=== PATIENT | male | born 1965 | race Caucasian/White ===

== ENCOUNTER 2017-05-20 04:19 | Emergency (ER) | payer OTHER ==
[~2017-05-20] VITALS: Ht 175.3 cm; Wt 97.5 kg
[2017-05-20] MEDS ORDERED: TETRACAINE 0.5% OPHTH SOLN 4ML OU ONE (06:45)
--- NOTE | 2017-05-20 07:10 | REPUSA ---
CLINICAL HISTORY: Headaches. TECHNIQUE: Multiple axial brain CT scan sections were obtained from base to vertex without contrast a dministration. COMMENTS: The study shows normal configuration of sella turcica. There are no intra or extra-axial collections. There is no mass effect or midline shift. There is no evidence of hematoma formation. No hydrocephal us is present. No abnormal calcifications are noted. No significant abnormalities are seen either in the posterior fossa or supratentorial compartment. The sinuses and mastoid air cells are patent. IMPRESSION: No evidence of acute intracranial pathology. Thank you for your kind referral of this patient.
[2017-05-20 07:21] VITALS: BP 180/90
[2017-05-20] MEDS ORDERED: NAPR500T PO (07:39)
[2017-05-21] MEDS ORDERED: PRED10TA2 PO (14:25)
[2017-05-21] MEDS ORDERED: REGL10TA6 PO (19:58)
== END 2017-05-20 07:50 | disposition home or self-care (01) ==
LOC: M ED 04:19
DX: H57.11 Ocular pain, right eye (principal); R51 Headache; F17.210 Nicotine dependence, cigarettes, uncomplicated

== ENCOUNTER 2017-05-21 13:53 | Emergency (ER) | payer OTHER ==
[~2017-05-21] VITALS: Ht 175.3 cm; Wt 97.2 kg
[~2017-05-21 13:53] MED LIST: NAPR500T PO
[2017-05-21] MEDS ORDERED: PRED10TA2 PO (14:25)
[2017-05-21] MEDS ORDERED: NS 1,000 ML IV ONE (14:45)
[2017-05-21] MEDS ORDERED: diphenhydrAMINE INJ 50MG/ML VIAL (J1200) IV ONE (14:45)
[2017-05-21] MEDS ORDERED: METOCLOPRAMIDE INJ 10MG/2ML VIAL (J2765) IV ONE (14:45)
[2017-05-21 15:14] LABS: MEAN CORPUSCULAR HEMOGLOBIN 29.6 pg (27.0-33.0); MEAN CORPUSCULAR VOLUME 84.6 fl (80.0-96.0); PLATELET COUNT, AUTOMATED 275 10^3/uL (150-450); WHITE BLOOD COUNT 16.3 10^3/uL (4.0-10.0)
[2017-05-21 15:16] LABS: ADD MANUAL DIFFER YES; DIFF SLIDE NUMBER 276
[2017-05-21 15:30] LABS: INR 1.03
[2017-05-21 16:04] LABS: METHADONE URINE NEGATIVE (NEGATIVE)
[2017-05-21 16:04] LABS: ALBUMIN 4.4 GM/DL (3.2-5.2); ALBUMIN/GLOBULIN RATIO 1.57 (1.00-1.93); ALKALINE PHOSPHATASE 72 U/L (45-117); ALT/SGPT 27 U/L (12-78); ANION GAP 9 MEQ/L (8-16); AST/SGOT 11 U/L (15-37); BILIRUBIN,DIRECT 0.2 MG/DL (0.0-0.2); BILIRUBIN,TOTAL 0.5 MG/DL (0.2-1.0); BLOOD UREA NITROGEN 22 MG/DL (7-18); CALCIUM LEVEL 9.3 MG/DL (8.5-10.1); CARBON DIOXIDE LEVEL 26 MEQ/L (21-32); CHLORIDE LEVEL 104 MEQ/L (98-107); CREATININE FOR GFR 1.22 MG/DL (0.70-1.30); GLOMERULAR FILTRATION RATE > 60.0 (>56); GLUCOSE, FASTING 146 MG/DL (70-105); MAGNESIUM LEVEL 2.2 MG/DL (1.8-2.4); POTASSIUM SERUM 4.1 MEQ/L (3.5-5.1); SODIUM LEVEL 139 MEQ/L (136-145); TOTAL PROTEIN 7.2 GM/DL (6.4-8.2)
[2017-05-21 16:29] LABS: BANDS 1 % (< 11)
[2017-05-21 16:30] LABS: ANISOCYTOSIS 1+; MICROCYTOSIS 1+
[2017-05-21] MEDS ORDERED: LORazepam 2 MG/ML VIAL (J2060) IV STA (18:16)
--- NOTE | 2017-05-21 19:10 | REPUSA ---
MRI of the brain without contrast clinical history: headache. Vision changes. Comparison: 05/20/2017. Technique: [id number] MRA images of the brain were obtained without administration of contrast. 3 -D MIP images were also obtained. Findings: The vascular structures extending from the distal carotid and vertebrobasilar arterial syst ems, through the [place] of [place], demonstrate normal caliber and contour. There is no evidence of an eurysm, stenosis, or thrombosis. Impression: Unremarkable MRA examination of the brain.
[2017-05-21 19:14] LABS: DIFF SLIDE NUMBER 307
--- NOTE | 2017-05-21 19:20 | REPUSA ---
MRI of the brain. Clinical history: headache, vision changes. Comparison: CT, 05/20/2017. Technique: Multiecho multiplanar MRI images of the brain were obtained without administration of cont rast. Diffusion weighted images with ADC mapping was also obtained. Findings: The ventricles and sulci are symmetric bilaterally. The brain parenchyma demonstrates uniform and nor mal signal on all sequences. There is no midline shift, mass effect, or extra-axial fluid collection. The midline intracranial structures do not demonstrate any gross abnormalities. The cervical cranial junction is intact. The orbits are unremarkable. There is a mucus retention cyst in the left maxilla ry sinus. The other visualized paranasal sinuses and mastoid air cells are clear. The osseous structu res and superficial soft tissues are unremarkable. The vascular structures demonstrate appropriate fl ow voids. Impression: Normal MRI of the Brain.
[2017-05-21] MEDS ORDERED: REGL10TA6 PO (19:58)
[2017-05-21 20:13] VITALS: BP 110/53
== END 2017-05-21 20:20 | disposition home or self-care (01) ==
LOC: M ED 13:53
DX: G43.909 Migraine, unspecified, not intractable, without status migrainosus (principal)
CPT/HCPCS: 36415; 70544; 70551; 80048; 80076; 80307; 82550; 82553; 83735; 84443; 85025; 85610; 93041; 94760; 96361; 96374; 96375; 99285; G0480; J1200; J2060; J2765

== ENCOUNTER → 2017-12-23 | Outpatient (CLI) | payer OTHER | LOC: M PLARAD 07:51 | DX: M54.2 Cervicalgia (principal) ==

== ENCOUNTER 2018-01-07 09:30 | Outpatient (CLI) | payer OTHER ==
[2018-01-07] MEDS ORDERED: MIDAZOLAM INJ 2 MG/2 ML VIAL (J2250) As Ordered (10:49)
== END 2018-01-07 12:52 | disposition home or self-care (01) ==
LOC: M RAD 09:30
DX: M54.2 Cervicalgia (principal); M47.812 Spondylosis without myelopathy or radiculopathy, cervical region; M47.813 Spondylosis without myelopathy or radiculopathy, cervicothoracic region
CPT/HCPCS: J2250

== ENCOUNTER 2019-11-13 10:03 | Emergency (ER) | payer OTHER ==
[~2019-11-13] VITALS: Ht 175.3 cm; Wt 97.7 kg
[~2019-11-13 10:03] MED LIST changes: +NAPR-837 PO; -NAPR500T PO; +PRED10TA2 PO; +REGL10TA6 PO
[2019-11-13] MEDS ORDERED: LOSA25TA14 PO (10:15)
[2019-11-13] MEDS ORDERED: OSEL75CA2 PO (10:15)
[2019-11-13 11:28] LABS: HEMATOCRIT 41.7 % (42.0-52.0); HEMOGLOBIN 13.9 g/dl (13.5-17.5); MEAN CORPUSCULAR HGB CONC 33.3 g/dl (32.0-36.5); MEAN CORPUSCULAR VOLUME 87.1 fl (80.0-96.0); PLATELET COUNT, AUTOMATED 198 10^3/uL (150-450); RED BLOOD COUNT 4.79 10^6/uL (4.30-6.10); WHITE BLOOD COUNT 7.8 10^3/uL (4.0-10.0)
[2019-11-13 11:55] LABS: BLOOD UREA NITROGEN 12 MG/DL (7-18); CALCIUM LEVEL 8.5 MG/DL (8.5-10.1); CARBON DIOXIDE LEVEL 33 MEQ/L (21-32); CHLORIDE LEVEL 103 MEQ/L (98-107); CK-MB VALUE MASS < 1.0 NG/ML (<3.6); CPK CREATINE PHOSPHOKINASE 84 U/L (39-308); CREATININE FOR GFR 1.07 MG/DL (0.70-1.30); GLOMERULAR FILTRATION RATE > 60.0 (>56); GLUCOSE, FASTING 104 MG/DL (70-100); MB/CK RELATIVE INDEX 1.19 (< OR =4); POTASSIUM SERUM 4.8 MEQ/L (3.5-5.1); SODIUM LEVEL 138 MEQ/L (136-145); TROPONIN I < 0.02 NG/ML (< 0.10)
[2019-11-13 11:57] LABS: ATYPICAL LYMPH 4 % (0-5); LYMPHOCYTES 39 % (16-44); MONOCYTES 8 % (0-5); NEUTROPHILS 47 % (28-66); PLATELET ESTIMATE NORMAL (NORMAL)
--- NOTE | 2019-11-13 12:28 | REP ---
PORTABLE CHEST X-RAY: Single view. HISTORY: Cough for 5 days. Fever. Comparison chest x-ray October 13, 2014. FINDINGS: There is a pattern of increased parenchymal opacity along the lateral chest wall on the left. I cannot exclude early infiltrate. Right lung remains clear. Heart is not enlarged. No significant bony abnormality is seen. Pulmonary vasculature is not increased. IMPRESSION: Increased density along the left lateral chest may reflect early infiltrate. Otherwise no acute disease. Electronically Signed by Darren Snyder MD 11/13/2019 12:48 P
[2019-11-13] MEDS ORDERED: DOXY100T27 PO (13:51)
[2019-11-13 14:21] VITALS: BP 121/73
--- NOTE | 2019-11-13 18:43 | ECGEPIP ---
[facility] - ED Test Date: 2019-11-13 Pat Name: ABDIRIZAK HILLS Department: Room: - Gender: Male Garnett Fixer: RAKESH : 1965 Requested By: Shabnam Bear [facility] Order Number: [id number] Reading MD: Cindy Marquez Measurements Intervals [place] Rate: 91 P: 31 AL: 167 QRS: 16 QRSD: 92 T: 33 QT: 347 QTc: 429 Interpretive Statements SINUS RHYTHM INCREASED RATE 10/14/14 Electronically Signed on 11-13-2019 18:42:52 EDT by Cindy Marquez
== END 2019-11-13 14:33 | disposition home or self-care (01) ==
LOC: M ED 10:03
DX: J18.9 Pneumonia, unspecified organism (principal); I10 Essential (primary) hypertension; Z79.899 Other long term (current) drug therapy
CPT/HCPCS: 36415; 71045; 80048; 82550; 82553; 84484; 85025; 87486; 87581; 87633; 87798; 93005; 99284; U0002

== ENCOUNTER → 2020-09-06 | Outpatient (CLI) | payer SELFPAY ==
[~2020-09-06] MED LIST changes: +DOXY100T27 PO; +LOSA25TA14 PO; +OSEL75CA2 PO
== END ==
LOC: M LABSMTC 11:21
PROVIDERS: ATTEND Pediatrics
DX: Z20.828 Contact with and (suspected) exposure to other viral communicable diseases (principal)

== ENCOUNTER → 2021-01-27 | Outpatient (CLI) | payer OTHER ==
--- NOTE | 2021-01-27 12:28 | REP ---
INDICATION: RCT, RUPTURE OF RT SHOULDER. COMPARISON: 03/11/2006. TECHNIQUE: Coronal oblique T1, T2 fat sat, sagittal oblique T2 fat sat, axial T2 fat sat, gradient echo. FINDINGS: Rotator cuff: No evidence of tear. There is [id number] supraspinatus tendinopathy/tendinitis. Acromioclavicular joint: There is moderate hypertrophic change at the acromioclavicular joint. There is mild fluid in the joint. Acromion: Type 2, downward sloping. Biceps Tendon: In bicipital groove, no tenosynovitis. Hill Sach's deformity: None. Deltoid muscle: No abnormal signal. Biceps labral complex: There is tear at the biceps labral complex. Labrum: There is diffuse SLAP tear. There is a tear of the posterior labrum with an associated paralabral cyst, which extends along the posterior bony glenoid. There is an inferior labral tear with an associated paralabral cyst along the inferior glenoid. Cartilage: No defects. Bone marrow: There are few subcortical cystic structures of the humeral head. Joint fluid: There is not a significant joint effusion. IMPRESSION: [id number] supraspinatus tendinopathy/tendinitis, no rotator cuff tear. Moderate hypertrophic degenerative changes acromioclavicular joint with a type 2 downward sloping acromion. There is diffuse SLAP tear which also involves the biceps labral complex. There is a tear of the posterior labrum with associated paralabral cyst as well as a tear of the inferior labrum with an associated paralabral cyst. <Electronically signed by Alfredo Caal > 01/27/21 [id number]
== END ==
LOC: M RAD 09:55
PROVIDERS: ATTEND Nurse Practitioner Family
DX: M77.8 Other enthesopathies, not elsewhere classified (principal); M75.101 Unspecified rotator cuff tear or rupture of right shoulder, not specified as traumatic

== ENCOUNTER → 2021-06-26 | Outpatient (CLI) | payer OTHER ==
[2021-06-26 18:09] LABS: HEMATOCRIT 44.4 % (42.0-52.0); HEMOGLOBIN 14.8 g/dl (13.5-17.5); MEAN CORPUSCULAR HEMOGLOBIN 29.2 pg (27.0-33.0); MEAN CORPUSCULAR HGB CONC 33.3 g/dl (32.0-36.5); MEAN CORPUSCULAR VOLUME 87.7 fl (80.0-96.0); PLATELET COUNT, AUTOMATED 279 10^3/uL (150-450); RED BLOOD COUNT 5.06 10^6/uL (4.30-6.10); WHITE BLOOD COUNT 9.1 10^3/uL (4.0-10.0)
[2021-06-26 18:39] LABS: ALT/SGPT 52 U/L (12-78); BILIRUBIN,TOTAL 0.6 MG/DL (0.2-1.0); BLOOD UREA NITROGEN 16 MG/DL (7-18); C REACTIVE PROTEIN QUANTITATIV 0.54 MG/DL (0.00-0.30); CALCIUM LEVEL 9.1 MG/DL (8.5-10.1); CARBON DIOXIDE LEVEL 31 MEQ/L (21-32); CHLORIDE LEVEL 105 MEQ/L (98-107); CHOLESTEROL LEVEL 195 MG/DL (<200); CHOLESTEROL RISK RATIO 4.062 (<5); CREATININE FOR GFR 1.02 MG/DL (0.70-1.30); GLOMERULAR FILTRATION RATE > 60.0 (>56); GLUCOSE, FASTING 90 MG/DL (70-100); HDL CHOLESTEROL 48 MG/DL (>40); LDL CHOLESTEROL 80 MG/DL (<100); MAGNESIUM LEVEL 2.3 MG/DL (1.8-2.4); NON-HDL-C 147 MG/DL; NT-PRO BNP 48 PG/ML (<125); POTASSIUM SERUM 4.1 MEQ/L (3.5-5.1); SODIUM LEVEL 140 MEQ/L (136-145); TOTAL PROTEIN 7.2 GM/DL (6.4-8.2); TRIGLYCERIDES LEVEL 335 MG/DL (<150)
== END ==
LOC: M WUC 14:47
PROVIDERS: ATTEND Internal Medicine Cardiovascular Disease
DX: I11.0 Hypertensive heart disease with heart failure (principal); I50.9 Heart failure, unspecified; R94.31 Abnormal electrocardiogram [ECG] [EKG]; I47.2 Ventricular tachycardia; E78.2 Mixed hyperlipidemia

== ENCOUNTER → 2023-08-05 | Outpatient (CLI) | payer OTHER ==
[~2023-08-05] MED LIST changes: +LOSA25TA13 PO; -LOSA25TA14 PO
== END ==
LOC: M EKG 15:48
PROVIDERS: ATTEND Orthopaedic Surgery
DX: Z01.818 Encounter for other preprocedural examination (principal)

== ENCOUNTER → 2023-10-18 | Outpatient (CLI) | payer OTHER | LOC: M RAD 09:15 | PROVIDERS: ATTEND Orthopaedic Surgery | DX: R22.41 Localized swelling, mass and lump, right lower limb (principal) ==

== ENCOUNTER 2023-12-12 08:38 | Emergency (ER) | payer OTHER ==
[~2023-12-12] VITALS: Ht 175.3 cm; Wt 94.7 kg
[2023-12-12] MEDS ORDERED: FAMO20TA PO (08:44)
[2023-12-12] MEDS ORDERED: AMOX875T2 PO (08:44)
[2023-12-12 10:04] LABS: BASO % 0.5 % (0.0-1.0); EOS # 0.3 10^3/uL (0.0-0.5); EOS % 4.9 % (0.0-3.0); HEMATOCRIT 44.5 % (42.0-52.0); HEMOGLOBIN 15.1 g/dl (13.5-17.5); LYMPH # 1.6 10^3/uL (1.5-5.0); LYMPH % 25.2 % (24.0-44.0); MEAN CORPUSCULAR HEMOGLOBIN 29.7 pg (27.0-33.0); MEAN CORPUSCULAR HGB CONC 33.9 g/dl (32.0-36.5); MEAN CORPUSCULAR VOLUME 87.6 fl (80.0-96.0); MONO # 0.3 10^3/uL (0.0-0.8); MONO % 5.4 % (2.0-8.0); NEUTROPHILS % 63.7 % (36.0-66.0); PLATELET COUNT, AUTOMATED 304 10^3/uL (150-450); RED BLOOD COUNT 5.08 10^6/uL (4.30-6.10); WHITE BLOOD COUNT 6.3 10^3/uL (4.0-10.0)
[2023-12-12 10:23] LABS: LIPASE 39 U/L (12-53)
[2023-12-12 10:26] LABS: ALBUMIN 3.7 G/DL (3.2-5.2); ALKALINE PHOSPHATASE 63 U/L (46-116); ALT/SGPT 24 U/L (7.0-40); AST/SGOT 13 U/L (<34); BILIRUBIN,DIRECT 0.2 MG/DL (<0.4); BILIRUBIN,TOTAL 0.7 MG/DL (0.3-1.2); BLOOD UREA NITROGEN 16 MG/DL (9-23); CALCIUM LEVEL 8.6 MG/DL (8.5-10.1); CARBON DIOXIDE LEVEL 30 MMOL/L (20-31); CHLORIDE LEVEL 107 MMOL/L (98-107); CREATININE FOR GFR 0.91 MG/DL (0.70-1.30); GLOMERULAR FILTRATION RATE > 60.0 (>56); GLUCOSE, FASTING 110 MG/DL (60-100); POTASSIUM SERUM 4.4 MMOL/L (3.5-5.1); SODIUM LEVEL 142 MMOL/L (136-145); TOTAL PROTEIN 6.8 G/DL (5.7-8.2)
[2023-12-12 11:53] VITALS: BP 115/70; TEMP 98.3; O2SAT 97
[2023-12-12] MEDS: KETOROLAC 30 MG/ML 1ML VIAL IV ONE (12:57)
[2023-12-12] MEDS ORDERED: METR-265 PO (13:19)
[2023-12-12] MEDS ORDERED: KETO10TAB PO (13:22)
== END 2023-12-12 13:55 | disposition home or self-care (01) ==
LOC: M ED 08:38
DX: K81.1 Chronic cholecystitis (principal); I10 Essential (primary) hypertension; K21.9 Gastro-esophageal reflux disease without esophagitis; Z79.899 Other long term (current) drug therapy
CPT/HCPCS: 11730; 11760; 36415; 76705; 80048; 80076; 81001; 83690; 85025; 93005; 96374; 99284; J1885

== ENCOUNTER → 2025-06-04 | Outpatient (CLI) | payer OTHER ==
[~2025-06-04] MED LIST changes: +AMOX875T2 PO; +FAMO20TA PO; +KETO10TAB PO; +METR-265 PO
== END ==
LOC: M WUC 12:03
PROVIDERS: ATTEND Nurse Practitioner Family
DX: M25.531 Pain in right wrist (principal)

== ENCOUNTER → 2025-06-10 | Outpatient (CLI) | payer OTHER ==
[~2025-06-10] MED LIST changes: +METH-1164 PO
== END ==
LOC: M WUC 10:11
PROVIDERS: ATTEND Student in an Organized Health Care Education/Training Program
DX: S20.211A Contusion of right front wall of thorax, initial encounter (principal); Y93.9 Activity, unspecified; Y92.9 Unspecified place or not applicable

== ENCOUNTER 2025-06-14 15:21 | Emergency (ER) | payer OTHER ==
[~2025-06-14] VITALS: Ht 175.3 cm; Wt 93.2 kg
[~2025-06-14 15:21] MED LIST changes: -METH-1164 PO
[2025-06-14] MEDS: ONDANSETRON 4MG/2ML VIAL IV ONE (23:18)
[2025-06-14] MEDS ORDERED: ISOVUE-370 76% 100 ML VIAL As Ordered ONE (23:21)
[2025-06-14] MEDS: MORPHINE 4 MG/ML 1 ML VIAL IV ONE (23:24)
[2025-06-14 23:25] LABS: BASO # 0.0 10^3/uL (0.0-0.2); BASO % 0.3 % (0.0-1.0); EOS # 0.3 10^3/uL (0.0-0.5); EOS % 2.9 % (0.0-3.0); LYMPH # 2.1 10^3/uL (1.5-5.0); LYMPH % 23.4 % (24.0-44.0); MONO # 0.5 10^3/uL (0.0-0.8); MONO % 5.6 % (2.0-8.0); NEUTROPHILS # 6.0 10^3/uL (1.5-8.5); NEUTROPHILS % 67.5 % (36.0-66.0); PLATELET COUNT, AUTOMATED 297 10^3/uL (150-450)
[2025-06-14 23:47] LABS: CALCIUM LEVEL 9.2 MG/DL (8.3-10.6); CARBON DIOXIDE LEVEL 29.0 MMOL/L (20-31); CHLORIDE LEVEL 103.0 MMOL/L (98-107); CREATININE FOR GFR 0.99 MG/DL (0.70-1.30); GLOMERULAR FILTRATION RATE 87.2 (>49); POTASSIUM SERUM 4.4 MMOL/L (3.5-5.1); SODIUM LEVEL 142.0 MMOL/L (136-145)
[2025-06-15] MEDS: KETOROLAC 30 MG/ML 1 ML VIAL IV ONE (00:55)
[2025-06-15] MEDS: METHOCARBAMOL 1,000 MG/10 ML VIAL IV ONE (00:56)
[2025-06-15] MEDS ORDERED: METH-1164 PO (01:46)
[2025-06-15 02:15] VITALS: BP 138/85; TEMP 97.2; O2SAT 95
== END 2025-06-15 02:16 | disposition home or self-care (01) ==
LOC: M ED 15:21
DX: S20.221A Contusion of right back wall of thorax, initial encounter (principal); X58.XXXA Exposure to other specified factors, initial encounter; Y92.009 Unspecified place in unspecified non-institutional (private) residence as the place of occurrence of the external cause; Y93.89 Activity, other specified; Y99.9 Unspecified external cause status; I10 Essential (primary) hypertension; M43.16 Spondylolisthesis, lumbar region; Z79.899 Other long term (current) drug therapy
CPT/HCPCS: 71260; 72070; 72110; 74177; 80047; 80048; 85025; 96374; 96375; 99284; J1885; J2405; J2800; Q9967